=== PATIENT | male | born 1970 | race Caucasian/White ===

== ENCOUNTER → 2017-12-21 | Outpatient (CLI) | payer OTHER | LOC: BRMIMAGING 11:24 | PROVIDERS: ATTEND Family Medicine | DX: S62.620A Displaced fracture of middle phalanx of right index finger, initial encounter for closed fracture (principal); S62.610A Displaced fracture of proximal phalanx of right index finger, initial encounter for closed fracture | CPT/HCPCS: 73140-PO ==